=== PATIENT | male | born 1990 | race Hispanic/Latino ===

== ENCOUNTER → 2023-08-17 | Outpatient (CLI) | payer OTHER | END | disposition home or self-care (01) | LOC: RAH 10:43 | PROVIDERS: ATTEND Physician Assistant | DX: M19.022 Primary osteoarthritis, left elbow (principal); M79.632 Pain in left forearm; L90.5 Scar conditions and fibrosis of skin; M86.8X3 Other osteomyelitis, forearm; Z89.212 Acquired absence of left upper limb below elbow; Z89.222 Acquired absence of left upper limb above elbow | CPT/HCPCS: 73090 ==